=== PATIENT | female | born 1980 | race Caucasian/White ===

== ENCOUNTER 2022-06-18 09:02 | Emergency (ER) | payer BC ==
--- OUTSIDE RECORDS SUMMARY | 2022-06-18 09:04 | XMS REPORT | Continuity of Care Document ---
:1980 Author Organization [facility] t Address [address] [place] [address] Care Team Providers Name Role Phone Joy Valadez Primary Care Physician Catina Lee Attending Clinician Unavailable Only, Lazarus Db Test Attending Clinician Unavailable Unknown, Attending Attending Clinician Unavailable Joy Valadez Attending Clinician Lab, Adc Fam Pob I Attending Clinician Unavailable JOY ALBRIGHT Attending Clinician Unavailable Provider, [facility] Attending Clinician Unavailable Catina Lee Admitting Clinician Unavailable Payers Payer Name Policy Type Policy Effective Date Expiration Date Sour ce Number BCBS OF [id number] 2016 [place] o f [id number] [facility] -[facility] [phone] [address], [place] [address]XOI/POS Problems Condition Condition Condition Status Onset Resolution Last Treating Co mments Source Name Details Category Date Date Treatment Clinician Date No known No known Disease Unive rs active active ity of problems problems [facility] Allergies, Adverse Reactions, Alerts Allergy Allergy Status Severity Reaction(s) Onset Inactive Treating Comm ents Source Name Type Date Date Clinician No Known DA Active U [facility] Allergie -14 [place] s 00:00: d 00 [facility] NO KNOWN Drug Active Univers ALLERGIE Class ity of S [facility] Social History Social Habit Start Date Stop Date Quantity Comments Source Exposure to Not sure [facility] SARS-CoV-2 (event) [facility] Cigarettes smoked 2020-10-14 2020-10-14 Univers ity of current (pack per 00:00:00 00:00:00 [facility] ) - Reported Branch Tobacco use and 2020-10-14 2020-10-14 Current user Univers ity of exposure 00:00:00 00:00:00 [facility] History of tobacco 2020-07-02 Cigarette Smoker University of use 00:00:00 [facility] Sex Assigned At [birth year] Universit y of 00:00:00 00:00:00 [facility] Smoking Status Start Date Stop Date Source Former smoker 2020-10-14 00:00:00 2020-10-14 00:00:00 Universi ty [facility] Unknown if ever smoked [facility] y [facility] Medications Ordered Filled Start Stop Current Ordering Indication Dosage Frequency Signature Comments Components Source Medication Medication Date Date Medication? Clinician (SIG) Name Name escitalopra Yes 20mg Take 20 mg Univers m oxalate 3-11 by mouth ity of 20 mg 14:08: daily. [place] tablet 57 [facility] escitalopra Yes 20mg Take 20 mg Univers m oxalate 3-11 by mouth ity of 20 mg 14:08: daily. [place] tablet 57 [facility] escitalopra Yes 20mg Take 20 mg Univers m oxalate 3-11 by mouth ity of 20 mg 14:08: daily. [place] tablet 57 [facility] escitalopra Yes 20mg Take 20 mg Univers m oxalate 3-11 by mouth ity of 20 mg 14:08: daily. [place] tablet 57 [facility] escitalopra Yes 20mg Take 20 mg Univers m oxalate 3-11 by mouth ity of 20 mg 14:08: daily. [place] tablet 57 [facility] escitalopra Yes 20mg Take 20 mg Univers m oxalate 3-11 by mouth ity of 20 mg 14:08: daily. [place] tablet 57 [facility] escitalopra Yes 20mg Take 20 mg Univers m oxalate 3-11 by mouth ity of 20 mg 14:08: daily. [place] tablet 57 Medical [facility] escitalopra Yes 20mg Take 20 mg Univers m oxalate 3-11 by mouth ity of 20 mg 14:08: daily. [place] tablet 57 Medical Branch levonorgest 2020-0 Yes Univer s reL 20 6-10 ity of mcg/24 00:00: [place] ( Medical yrs) 52 mg Branch IUD levonorgest 2020-0 Yes Univer s reL 20 6-10 ity of mcg/24 00:00: [place] [facility] ( Medical yrs) 52 mg Branch IUD levonorgest 2020-0 Yes Univer s reL 20 6-10 ity of mcg/24 00:00: [place] hours ( Medical yrs) 52 mg Branch IUD levonorgest 2020-0 Yes Univer s reL 20 6-10 ity of mcg/24 00:00: [place] hours ( Medical yrs) 52 mg Branch IUD levonorgest 2020-0 Yes Univer s reL 20 6-10 ity of mcg/24 00:00: [place] hours ( Medical yrs) 52 mg Branch IUD levonorgest 2020-0 Yes Univer s reL 20 6-10 ity of mcg/24 00:00: [place] hours ( Medical yrs) 52 mg Branch IUD levonorgest 2020-0 Yes Univer s reL 20 6-10 ity of mcg/24 00:00: [place] hours ( Medical yrs) 52 mg Branch IUD levonorgest 2020-0 Yes Univer s reL 20 6-10 ity of mcg/24 00:00: [place] hours ( Medical yrs) 52 mg Branch IUD No known No [facility] Vital Name Observation Time Observation Value Comments Source Systolic blood 2020-10-14 14:07:00 105 mm[Hg] Univer sity of pressure [facility] Diastolic blood 2020-10-14 14:07:00 75 mm[Hg] Unive rsity of pressure [facility] Heart rate 2020-10-14 14:07:00 87 /min [facility] Body temperature 2020-10-14 14:07:00 36.89 [place] Univ ersity [facility] Body height 2020-10-14 14:07:00 152.4 cm [facility] Body weight 2020-10-14 14:07:00 57.153 kg Universi ty [facility] [place] BMI 2020-10-14 14:07:00 24.61 kg/m2 Universi ty [facility] Systolic blood 2020-07-05 19:13:00 134 mm[Hg] Univer sity of pressure [facility] Diastolic blood 2020-07-05 19:13:00 87 mm[Hg] Unive rsity of pressure [facility] Heart rate 2020-07-05 19:13:00 105 /min Universi ty [facility] Respiratory rate 2020-07-05 19:13:00 16 /min Univ ersity of [facility] Body height 2020-07-05 19:13:00 152.4 cm Universi [facility] Body weight 2020-07-05 19:13:00 72.576 kg Universi [facility] BMI 2020-07-05 19:13:00 31.25 kg/m2 Universi [facility] Oxygen saturation in 2020-07-05 19:13:00 97 /min [facility] Arterial blood by [facility] Pulse oximetry Branch Procedures Procedure Date / Time Performing Clinician Source Performed COMP. METABOLIC PANEL 2020-10-14 15:06:00 Joy Albright [facility] ([id number]) [facility] [place] CBC WITH DIFF 2020-10-14 15:06:00 Darrius [facility] VITAMIN B12, LEVEL 2020-10-14 15:06:00 Joy Albright [facility] THYROID STIMULATING 2020-10-14 15:06:00 Darrius [facility] HORMONE [facility] LIPID PANEL 2020-10-14 15:06:00 Darrius [facility] ([id number])(TOTAL Medical Branch CHOLESTEROL, TRIGLYCERIDES, HDL) VITAMIN D, 25-OH 2020-10-14 15:06:00 [facility] Encounters Start End Encounter Admission Attending Care Care Encounter Source Date/Time Date/Time Type Type Clinicians Facility Department ID 2022-02-24 2022-02-24 Outpatient RICHARD Dale [id number] [facility] 08:00:00 08:00:00 Catina 49 [facility] 2021-04-02 2021-04-02 Laboratory Only, Ang Db Test [facility] 1.2.8 40.114 [id number] Univers 12:43:16 12:53:16 Only Unknown, Attending Health [id number] ity of [place] 4.2.7.2.686 Nino as Jason?Blea [phone] Md lila oscar 370 [facility] Office Building 2021-04-02 2021-04-02 Outpatient R [facility] [id number] Univers 12:45:00 12:45:00 ity of [facility] 2021-02-15 2021-02-15 Outpatient MATTHEW Lee, [facility] [id number] [facility] 12:00:00 12:00:00 [place] [address] [facility] 2020-11-18 2020-11-18 Patient Darrius, [facility] [id number] Univers 00:00:00 00:00:00 Secure Msg Joy Health [id number] ity of [place] 4.2.7.2.686 Nino as Professio [phone] Md dical nal 044 [place] [facility] One 2020-11-15 2020-11-15 Certified Master [facility]cr[facility] Lab, Adc Fam Pob I [facility] 1.2. 840.114 [id number] Univers 08:00:38 08:10:59 Visit Joy [facility] [id number] ity of [place] 4.2.7.2.686 Nino as Professio [phone] Md dical nal 044 [place] [facility] [address] One 2020-11-15 2020-11-15 Outpatient R DARRIUS, [facility] [id number] Univers 08:00:00 08:00:00 JOY ity of [facility] 2020-10-14 2020-10-14 Certified Master [facility]cracker Lab, [facility] Fam Pob I [facility] 1.2. 840.114 [id number] Univers 08:49:59 09:11:22 Visit Joy [facility] [id number] ity of [place] 4.2.7.2.686 Nino as Professio [phone] Md dical nal 044 [place] [facility] Building One 2020-10-14 2020-10-14 Office Darrius [facility] 1.2.840.114 [id number] Univers 08:02:54 08:50:14 Visit Joy Mccann 350.1.13.10 it y of [place] 4.2.7.2.686 Nino as Professio [phone] Md dical nal 044 [place] [facility] 2020-10-14 2020-10-14 [facility] [id number] Univers 08:00:00 08:00:00 JOY garcía [facility] 2020-09-09 2020-09-09 [facility] [id number] Univers 10:00:00 10:00:00 JOY madelyn [facility] 2020-07-05 2020-07-05 Urgent Provider, [facility] 1.2.840.114 [id number] Univers 13:01:19 13:42:24 Care Joy Albright [id number] ity jarret [place] 4.2.7.2.686 Nino as Professio [phone] Md dicmd nal 044 [place] [facility] 2020-07-05 2020-07-05 [facility] [id number] Univers 13:00:00 13:00:00 [facility] Results Test Description Test Time Test Comments Results Result Comments Source VITAMIN B12, LEVEL 2020-10-14 22:47:10 Test Item Value Reference Range Interpretation Comme nts VIT B12 (test code = 9911138009) 713 pg/mL 240-930 TYE (test code = TYE) Biotin has been reported to cause a positive bias, interpret results relative to patient's use of biotin. Lab Interpretation (test code = Normal 69264-0) [facility], [id number] 21:31:26 Test Item Value Reference Range Interpretation Comments VIT D 25OH (test code = 52 ng/mL 25-80 40827-8) TYE (test code = TYE) Deficiency: <20 ng/mLInsufficiency : 20-24 ng/mLOptimal: 25-80 ng/mL Lab Interpretation (test Normal code = 75149-6) [facility] [id number] 17:35:59 Test Item Value Reference Range Interpretation Comments TSH (test code = See_Comment L [Automated message] 6882540903) The system [employer] generated this result transmitted ref erence range: 0.45 - 4 .70 mIU/L. The refe rence range was not u sed to interpret this result as normal/abnor mal. Lab Interpretation (test Abnormal code = 00515-2) [facility]. METABOLIC PANEL ([id number])2020-10-14 17:14:57 Test Item Value Reference Range Interpretation Comments NA (test code = 139 mmol/L 135-145 8940079845) K (test code = 4.6 mmol/L 3.5-5.0 7331397625) CL (test code = 99 mmol/L 98-108 6832794773) CO2 TOTAL (test code = 31 mmol/L 23-31 8402458400) AGAP (test code = 2-16 9924107594) BUN (test code = 7 mg/dL 7-23 8680841598) GLUCOSE (test code = 80 mg/dL 70-110 0588801889) CREATININE (test code = 0.49 mg/dL 0.50-1.04 L 6893061679) TOTAL BILI (test code = 1.1 mg/dL 0.1-1.7 5217061755) CALCIUM (test code = 9.6 mg/dL 8.6-10.6 8131411793) T PROTEIN (test code = 7.0 g/dL 6.3-8.2 4282309142) ALBUMIN (test code = 4.5 g/dL 3.5-5.0 3583523516) ALK PHOS (test code = 87 U/L 34-122 0409260291) ALTv (test code = 26 U/L 5-35 1742-6) AST(SGOT) (test code = 29 U/L 13-40 6693318161) eGFR Calculation mL/min/1.73m2 (Non-) (test code = 6103199060) eGFR Calculation mL/min/1.73m2 () (test code = 7413145680) TYE (test code = TYE) Association of Glomerular Filtration Rate (GFR) and Staging of Kidney Disease* + --+ --+ ------+| GFR (mL/min/1.73 m2) ?| With Kidney Damage ?| ?Without Kidney Damage+ --------+ --------+ +| ?>90 ?| ?Stage one ?| ? Normal ?+ ---+ ---+ -------+| ?60-89 ?| ?Stage two ?| ? Decreased GFR ? + --+ --+ ------+| ?30-59 ?| ?Stage three ?| ? Stage three ? + --+ --+ ------+| ?15-29 ?| ?Stage four ? | ? Stage four ?+ ---+ ---+ -------+| ?<15 (or dialysis) ? ?| ?Stage five ? | ? Stage five ?+ ---+ ---+ -------+ *Each stage assumes the associated GFR level has been in effect for at least three months. ?Stages 1 to 5, with or without kidney disease, indicate chronic kidney disease. Notes: Determination of stages one and two (with eGFR >59mL/min/1.73 m2) requires estimation of kidney damage for at least three months as defined by structural or functional abnormalities of the kidney, manifested by either:Pathological abnormalities or Markers of kidney damage (including abnormalities in the composition of the blood or urine or abnormalities in imaging tests). Lab Interpretation Abnormal (test code = 71086-7) [facility]. METABOLIC PANEL ([id number])2020-10-14 17:14:57 Test Item Value Reference Range Interpretation Comments NA (test code = 139 mmol/L 135-145 0124902560) K (test code = 4.6 mmol/L 3.5-5.0 3821555928) CL (test code = 99 mmol/L 98-108 0083921590) CO2 TOTAL (test code = 31 mmol/L 23-31 7134648233) AGAP (test code = 2-16 7507286521) BUN (test code = 7 mg/dL 7-23 8037697719) GLUCOSE (test code = 80 mg/dL 70-110 9844632451) CREATININE (test code = 0.49 mg/dL 0.50-1.04 L 1823751459) TOTAL BILI (test code = 1.1 mg/dL 0.1-1.7 3626823637) CALCIUM (test code = 9.6 mg/dL 8.6-10.6 0386015034) T PROTEIN (test code = 7.0 g/dL 6.3-8.2 3864212605) ALBUMIN (test code = 4.5 g/dL 3.5-5.0 7414997792) ALK PHOS (test code = 87 U/L 34-122 6386213948) ALTv (test code = 26 U/L 5-35 1742-6) AST(SGOT) (test code = 29 U/L 13-40 9869704828) eGFR Calculation mL/min/1.73m2 (Non-) (test code = 9750678917) eGFR Calculation mL/min/1.73m2 () (test code = 9887740946) TYE (test code = TYE) Association of Glomerular Filtration Rate (GFR) and Staging of Kidney Disease* + --+ --+ ------+| GFR (mL/min/1.73 m2) ?| With Kidney Damage ?| ?Without Kidney Damage+ --------+ --------+ +| ?>90 ?| ?Stage one ?| ? Normal ?+ ---+ ---+ -------+| ?60-89 ?| ?Stage two ?| ? Decreased GFR ? + --+ --+ ------+| ?30-59 ?| ?Stage three ?| ? Stage three ? + --+ --+ ------+| ?15-29 ?| ?Stage four ? | ? Stage four ?+ ---+ ---+ -------+| ?<15 (or dialysis) ? ?| ?Stage five ? | ? Stage five ?+ ---+ ---+ -------+ *Each stage assumes the associated GFR level has been in effect for at least three months. ?Stages 1 to 5, with or without kidney disease, indicate chronic kidney disease. Notes: Determination of stages one and two (with eGFR >59mL/min/1.73 m2) requires estimation of kidney damage for at least three months as defined by structural or functional abnormalities of the kidney, manifested by either:Pathological abnormalities or Markers of kidney damage (including abnormalities in the composition of the blood or urine or abnormalities in imaging tests). Lab Interpretation Abnormal (test code = 10162-6) [facility] ([id number])(TOTAL CHOLESTEROL, TRIGLYCERIDES, HDL)2020-10-14 17:14:57 Test Item Value Reference Range Interpretation Comments CHOL (test code = 221 mg/dL 120-200 H 3586662932) HDL (test code = 49 mg/dL >50 L 9274489355) HDLC RATIO (test code = See_Comment [Au tomated message] 9038883108) The system [employer] generated this result transmit samantha reference range : <=4.5. The refe rence range was not u sed to interpret th is result as normal/abnormal . TRIG (test code = 124 mg/dL 30-170 4304578964) LDL CHOL (test code = 147 mg/dL See_Comment [Auto mated message] 70744-2) The system [employer] generated this result transmit samantha reference range : <=160. The refe rence range was not u sed to interpret th is result as normal/abnormal . VLDL (test code = 25 mg/dL 5-60 3137734188) Lab Interpretation (test Abnormal code = 91371-9) [facility] WITH [id number] 16:54:15 Test Item Value Reference Range Interpretation Comments WBC (test code = See_Comment [Automated 1890-2) message] The sy stem which generated this result transmitted reference range : 4.30 - 11.10 10*3/?L. The reference range was not used to interpret this result as normal/abnormal . RBC (test code = See_Comment [Automated 609-8) message] The sy stem which generated this result transmitted reference range : 3.93 - 5.25 10*6/?L. The reference range was not used to interpret this result as normal/abnormal . HGB (test code = 14.9 g/dL 11.6-15.0 718-7) HCT (test code = 45.3 % 35.7-45.2 H 4544-3) MCV (test code = 91.0 fL 80.6-95.5 787-2) MCH (test code = 29.9 pg 25.9-32.8 785-6) MCHC (test code = 32.9 g/dL 31.6-35.1 786-4) RDW-SD (test code = 44.3 fL 39.0-49.9 20765-8) RDW-CV (test code = 13.2 % 12.0-15.5 788-0) PLT (test code = See_Comment [Automated 777-3) message] The sy stem which generated this result transmitted reference range : 166 - 358 10*3/ ?L. The reference r gregoria was not used to interpret this result as normal/abnormal . MPV (test code = 11.3 fL 9.5-12.9 22563-5) NRBC/100 WBC (test See_Comment [Automat ed code = 8249319715) message] The system which generated this result transmitted reference range : 0.0 - 10.0 /100 WBCs. The refer ence range was not u sed to interpret th is result as normal/abnormal . NRBC x10^3 (test code <0.01 See_Comment [Auto mated = 4283506442) message] The s ystem which generated this result transmitted reference range : 10*3/?L. The reference range was not used to interpret this result as normal/abnormal . GRAN MAT (NEUT) % 51.7 % (test code = 770-8) IMM GRAN % (test code 0.40 % = 6743677349) LYMPH % (test code = 39.3 % 736-9) MONO % (test code = 5.7 % 5905-5) EOS % (test code = 2.6 % 713-8) BASO % (test code = 0.3 % 706-2) GRAN MAT x10^3(ANC) 4.02 10*3/uL 1.88-7.09 (test code = 1231660270) IMM GRAN x10^3 (test 0.03 10*3/uL 0.00-0.06 code = 5742050168) LYMPH x10^3 (test code 3.05 10*3/uL 1.32-3.29 = 731-0) MONO x10^3 (test code 0.44 10*3/uL 0.33-0.92 = 742-7) EOS x10^3 (test code = 0.20 10*3/uL 0.03-0.39 711-2) BASO x10^3 (test code <0.03 0.01-0.07 = 704-7) Lab Interpretation Abnormal (test code = 58306-3) [facility] WITH [id number] 16:54:15 Test Item Value Reference Range Interpretation Comments WBC (test code = See_Comment [Automated 6690-2) message] The sy stem which generated this result transmitted reference range : 4.30 - 11.10 10*3/?L. The reference range was not used to interpret this result as normal/abnormal . RBC (test code = See_Comment [Automated 789-8) message] The sy stem which generated this result transmitted reference range : 3.93 - 5.25 10*6/?L. The reference range was not used to interpret this result as normal/abnormal . HGB (test code = 14.9 g/dL 11.6-15.0 718-7) HCT (test code = 45.3 % 35.7-45.2 H 4544-3) MCV (test code = 91.0 fL 80.6-95.5 787-2) MCH (test code = 29.9 pg 25.9-32.8 785-6) MCHC (test code = 32.9 g/dL 31.6-35.1 786-4) RDW-SD (test code = 44.3 fL 39.0-49.9 33487-4) RDW-CV (test code = 13.2 % 12.0-15.5 788-0) PLT (test code = See_Comment [Automated 777-3) message] The sy stem which generated this result transmitted reference range : 166 - 358 10*3/ ?L. The reference r gregoria was not used to interpret this result as normal/abnormal . MPV (test code = 11.3 fL 9.5-12.9 67690-9) NRBC/100 WBC (test See_Comment [Automat ed code = 7434971518) message] The system which generated this result transmitted reference range : 0.0 - 10.0 /100 WBCs. The refer ence range was not u sed to interpret th is result as normal/abnormal . NRBC x10^3 (test code <0.01 See_Comment [Auto mated = 7404849152) message] The s ystem which generated this result transmitted reference range : 10*3/?L. The reference range was not used to interpret this result as normal/abnormal . GRAN MAT (NEUT) % 51.7 % (test code = 770-8) IMM GRAN % (test code 0.40 % = 0265299825) LYMPH % (test code = 39.3 % 736-9) MONO % (test code = 5.7 % 5905-5) EOS % (test code = 2.6 % 713-8) BASO % (test code = 0.3 % 706-2) GRAN MAT x10^3(ANC) 4.02 10*3/uL 1.88-7.09 (test code = 3125860842) IMM GRAN x10^3 (test 0.03 10*3/uL 0.00-0.06 code = 2064130087) LYMPH x10^3 (test code 3.05 10*3/uL 1.32-3.29 = 731-0) MONO x10^3 (test code 0.44 10*3/uL 0.33-0.92 = 742-7) EOS x10^3 (test code = 0.20 10*3/uL 0.03-0.39 711-2) BASO x10^3 (test code <0.03 0.01-0.07 = 704-7) Lab Interpretation Abnormal (test code = 93746-2) [facility]"
[2022-06-18] MEDS ORDERED: IBUPROFEN 200 MG TAB PO ONE (09:42)
[2022-06-18] MEDS ORDERED: HYDROCODONE/APAP 10/325 TAB ONE (10:38)
--- NOTE | 2022-06-18 10:46 | ER ---
Nurse's Notes [facility] Name: Clara Hutton Age: 41 yrs Sex: Female : 1980 Arrival Date: 06/18/2022 Time: 09:03 Bed 11 Private MD: Diagnosis: Sprain of tarsometatarsal ligament of right foot;Sprain of foot Presentation: 06/18 09:19 Chief complaint: Patient states: dancing last night around 0100 and rolled Right foot. vg1 Appears to be swollen and warm. Coronavirus screen: Vaccine status: Patient reports receiving the 2nd dose of the covid vaccine. Client denies travel out of the [place] in the last 14 days. Ebola Screen: Patient negative for fever greater than or equal to 101.5 degrees Fahrenheit, and additional compatible Ebola Virus Disease symptoms. Initial Sepsis Screen: Does the patient meet any 2 criteria? No. Patient's initial sepsis screen is negative. Does the patient have a suspected source of infection? No. Patient's initial sepsis screen is negative. Risk Assessment: Do you want to hurt yourself or someone else? Patient reports no desire to harm self or others. Onset of symptoms was June 18, 2022. 09:19 Method Of Arrival: Wheelchair vg1 09:19 Acuity: STARR 4 vg1 Triage Assessment: 09:21 General: Appears uncomfortable, Behavior is cooperative, anxious. Pain: Complains of vg1 pain in right foot. Musculoskeletal: Capillary refill < 3 seconds, in bilateral toes. Swelling present in right foot. TILE SETTER: 09:21 LMP N/A - control method vg1 Historical: - Allergies: 09:21 No Known Allergies; vg1 - Home Meds: 09:21 Lexapro Oral [Active]; vg1 - PMHx: 09:21 Anxiety; Depressive disorder; vg1 - PSHx: 09:21 gastric; vg1 - Immunization history:: Client reports receiving the 2nd dose of the Covid vaccine. - Social history:: Smoking status: Patient reports the use of cigarette tobacco products, denies chronic smoking, but will smoke occasionally, Reported history of juuling and/or vaping. - Family history:: not pertinent. Screenin:22 Abuse screen: Denies threats or abuse. Nutritional screening: No deficits noted. vg1 Tuberculosis screening: No symptoms or risk factors identified. Fall Risk No fall in past 12 months (0 pts). No secondary diagnosis (0 pts). No IV (0 pts). Ambulatory Aid- None/Bed Rest/Nurse Assist (0 pts). Gait- Impaired (20 pts.). Mental Status- Oriented to own ability (0 pts). Total Ferrari Fall Scale indicates No Risk (0-24 pts). Assessment: 10:57 General: Appears in no apparent distress. comfortable, Behavior is calm, cooperative. ss Neuro: Level of Consciousness is awake, alert. Respiratory: Airway is patent Respiratory effort is even, unlabored, Respiratory pattern is regular, symmetrical. Derm: Skin is intact, is healthy with good turgor, Skin is pink, warm \T\ dry. normal. Vital Signs: 09:19 BP 115 / 74; Pulse 99; Resp 17; Temp 98.5; Pulse Ox 100% ; Weight 54.43 kg; Height 5 vg1 ft. 0 in. (152.40 cm); Pain 7/10; 09:19 Body Mass Index 23.44 (54.43 kg, 152.40 cm) vg1 ED Course: 09:03 Patient arrived in ED. am2 09:21 Triage completed. vg1 09:21 Arm band placed on. vg1 09:22 Patient has correct armband on for positive identification. Bed in low position. Call vg1 light in reach. Side rails up X 1. Adult w/ patient. 09:23 Hill Qureshi MD is Attending Physician. faustino 09:25 Michelle Mcdonald, RN is Primary Nurse. vg1 10:36 XRAY Foot RIGHT 3 View In Process Unspecified. EDMS 10:46 Td Orlando MD is Referral Physician. [facility] 10:56 No provider procedures requiring assistance completed. Patient did not have IV access ss during this emergency room visit. 10:59 Crutch training done. Ortho shoe applied to right foot. ss Administered Medications: 09:41 Drug: Motrin (ibuprofen) 400 mg Route: PO; ss 11:00 Follow up: Response: No adverse reaction ss 10:38 Drug: Atlantic (HYDROcodone-acetaminophen) 10 mg-325 mg 1 tabs Route: PO; ss 10:56 Follow up: Response: Medication administered at discharge. ss Medication: 09:22 VIS not applicable for this client. vg1 Outcome: 10:45 Discharge ordered by . faustino 10:56 Discharged to home with crutches, with family. melanie 10:56 Condition: good 10:56 Discharge instructions given to patient, family, Instructed on discharge instructions, follow up and referral plans. medication usage, Demonstrated understanding of instructions, follow-up care, medications, Prescriptions given X 2. 11:00 Patient left the ED. Signatures: Dispatcher [employer] EDIA Hill Qureshi MD MD cha Smirch, Shelby, RN RN Alia Jernigan Victoria, RN RN vg1
--- NOTE | 2022-06-18 10:46 | EDPHYS ---
Physician Documentation [facility] Name: Clara Hutton Age: 41 yrs Sex: Female : 1980 Arrival Date: 06/18/2022 Time: 09:03 Bed 11 Private MD: DESTINY Physician Hill Qureshi HPI: 06/18 10:33 This 41 yrs old Female presents to ER via Wheelchair with complaints of Foot faustino Pain - right. 10:33 The patient presents with decreased range of motion, pain, that is acute. The faustino complaints affect the right foot, dorsum of right foot. Context: The problem was sustained inside, resulted from the patient falling, while walking, Mechanism of Injury: Inversion the patient can partially bear weight, the patient is able to ambulate. Onset: The symptoms/episode began/occurred last night. Modifying factors: The symptoms are alleviated by nothing, the symptoms are aggravated by weight bearing, movement, wearing shoes. Associated signs and symptoms: Pertinent positives: swelling. Severity of symptoms: At their worst the symptoms were moderate, in the emergency department the symptoms are unchanged. The patient has not experienced similar symptoms in the past. DIABETES NURSE: 09:21 LMP N/A - control method vg1 Historical: - Allergies: 09:21 No Known Allergies; vg1 - Home Meds: 09:21 Lexapro Oral [Active]; vg1 - PMHx: 09:21 Anxiety; Depressive disorder; vg1 - PSHx: 09:21 gastric; vg1 - Immunization history:: Client reports receiving the 2nd dose of the Covid vaccine. - Social history:: Smoking status: Patient reports the use of cigarette tobacco products, denies chronic smoking, but will smoke occasionally, Reported history of juuling and/or vaping. - Family history:: not pertinent. ROS: 10:33 Constitutional: Negative for fever, chills, and weight loss, Eyes: Negative for injury, faustino pain, redness, and discharge, ENT: Negative for injury, pain, and discharge, Neck: Negative for injury, pain, and swelling, Cardiovascular: Negative for chest pain, palpitations, and edema, Respiratory: Negative for shortness of breath, cough, wheezing, and pleuritic chest pain, Abdomen/GI: Negative for abdominal pain, nausea, vomiting, diarrhea, and constipation, Back: Negative for injury and pain, : Negative for injury, bleeding, discharge, and swelling, Skin: Negative for injury, rash, and discoloration, Neuro: Negative for headache, weakness, numbness, tingling, and seizure, Psych: Negative for depression, anxiety, suicide ideation, homicidal ideation, and hallucinations, Allergy/Immunology: Negative for hives, rash, and allergies, Endocrine: Negative for neck swelling, polydipsia, polyuria, polyphagia, and marked weight changes, Hematologic/Lymphatic: Negative for swollen nodes, abnormal bleeding, and unusual bruising. 10:33 MS/extremity: Positive for decreased range of motion, pain, swelling, tenderness, of the dorsum of right foot. Exam: 10:33 Constitutional: This is a well developed, well nourished patient who is awake, alert, faustino and in no acute distress. Head/Face: Normocephalic, atraumatic. Eyes: Pupils equal round and reactive to light, extra-ocular motions intact. Lids and lashes normal. Conjunctiva and sclera are non-icteric and not injected. Cornea within normal limits. Periorbital areas with no swelling, redness, or edema. ENT: Nares patent. No nasal discharge, no septal abnormalities noted. Tympanic membranes are normal and external auditory canals are clear. Oropharynx with no redness, swelling, or masses, exudates, or evidence of obstruction, uvula midline. Mucous membranes moist. Neck: Trachea midline, no thyromegaly or masses palpated, and no cervical lymphadenopathy. Supple, full range of motion without nuchal rigidity, or vertebral point tenderness. No Meningismus. Chest/axilla: Normal chest wall appearance and motion. Nontender with no deformity. No lesions are appreciated. Cardiovascular: Regular rate and rhythm with a normal S1 and S2. No gallops, murmurs, or rubs. Normal PMI, no JVD. No pulse deficits. Respiratory: Lungs have equal breath sounds bilaterally, clear to auscultation and percussion. No rales, rhonchi or wheezes noted. No increased work of breathing, no retractions or nasal flaring. Abdomen/GI: Soft, non-tender, with normal bowel sounds. No distension or tympany. No guarding or rebound. No evidence of tenderness throughout. Back: No spinal tenderness. No costovertebral tenderness. Full range of motion. Skin: Warm, dry with normal turgor. Normal color with no rashes, no lesions, and no evidence of cellulitis. Neuro: Awake and alert, GCS 15, oriented to person, place, time, and situation. Cranial nerves II-XII grossly intact. Motor strength 5/5 in all extremities. Sensory grossly intact. Cerebellar exam normal. Normal gait. Psych: Awake, alert, with orientation to person, place and time. Behavior, mood, and affect are within normal limits. 10:33 Musculoskeletal/extremity: ROM: limited active range of motion, limited passive range of motion, Circulation is intact in all extremities. Sensation intact. Compartment Syndrome exam of affected extremity: is normal. DVT Exam: negative Homans' sign noted on exam, no appreciated bluish discoloration, no erythema, no increased warmth, pain, swelling, tenderness. Vital Signs: 09:19 BP 115 / 74; Pulse 99; Resp 17; Temp 98.5; Pulse Ox 100% ; Weight 54.43 kg; Height 5 vg1 ft. 0 in. (152.40 cm); Pain 7/10; 09:19 Body Mass Index 23.44 (54.43 kg, 152.40 cm) vg1 MDM: 09:23 Patient medically screened. faustino 10:37 Differential diagnosis: fracture, sprain, arthritis. Data reviewed: vital signs, nurses [facility] notes, radiologic studies, plain films. Data interpreted: youth nutritional monitor: not applicable for this patient encounter. rate is 99 beats/min, rhythm is regular, Pulse oximetry: on room air is 100 %. Test interpretation: by ED physician or midlevel provider: plain radiologic studies. Counseling: I had a detailed discussion with the patient and/or guardian regarding: the historical points, exam findings, and any diagnostic results supporting the discharge/admit diagnosis, lab results, radiology results, the need for outpatient follow up, for definitive care, a orthopedic surgeon. 06/18 09:26 Order name: XRAY Foot RIGHT 3 View vg1 06/18 09:33 Order name: Ice pack; Complete Time: 09:42 faustino 06/18 10:33 Order name: Walking boot: short; Complete Time: 10:46 faustino 06/18 10:44 Order name: Crutches; Complete Time: 10:56 faustino Administered Medications: 09:41 Drug: Motrin (ibuprofen) 400 mg Route: PO; ss 11:00 Follow up: Response: No adverse reaction ss 10:38 Drug: Clint (HYDROcodone-acetaminophen) 10 mg-325 mg 1 tabs Route: PO; ss 10:56 Follow up: Response: Medication administered at discharge. Disposition Summary: 06/18/22 10:45 Discharge Ordered Location: Home faustino Problem: new faustino Symptoms: have improved faustino Condition: Stable faustino Diagnosis - Sprain of tarsometatarsal ligament of right foot faustino - Sprain of foot faustino Followup: faustino - With: Private Physician - When: 2 - 3 days - Reason: Recheck today's complaints, Continuance of care, Re-evaluation by your physician Followup: faustino - With: Td Orlando MD - When: 2 - 3 days - Reason: Recheck today's complaints, Re-evaluation by your physician Discharge Instructions: - Discharge Summary Sheet faustino - Foot Sprain faustino - Foot Pain faustino Forms: - Medication Reconciliation Form fausitno - Thank You Letter faustino - Antibiotic Education faustino - Prescription Opioid Use faustino Prescriptions: - Diclofenac Sodium 75 mg Oral tablet,delayed release (DR/EC) - take 1 tablet by ORAL route 2 times per day; 20 tablet; Refills: 0, Product faustino Selection Permitted - Tylenol-Codeine #3 300 mg-30 mg Oral - take 2 tablet by ORAL route every 6 hours; 20 tablet; Refills: 0, Product [facility] Selection Permitted Signatures: Dispatcher [employer] Hill Monterroso MD MD cha Smirch, Shelby, RN RN ss Michelle Mcdonald RN RN vg1
--- NOTE | 2022-06-18 10:53 | RAD REPORT ---
EXAM DESCRIPTION: RAD - Foot Right 3 View - 06/18/2022 10:34 am CLINICAL HISTORY: PAIN COMPARISON: No comparisons FINDINGS/IMPRESSION: No acute fracture. No malalignment. No significant focal degenerative changes.
[2022-06-18 11:11] VITALS: BP 115/74; TEMP 98.5; O2SAT 100
== END 2022-06-18 11:00 | disposition home or self-care (01) ==
LOC: ER 09:02
DX: S93.621A Sprain of tarsometatarsal ligament of right foot, initial encounter (principal)
CPT/HCPCS: 99284